=== PATIENT | male | born 1940 | race Caucasian/White ===

== ENCOUNTER → 2018-12-30 | Outpatient (CLI) | payer MEDICARE ==
[2018-12-30 08:11] LABS: HCT 39.9 % (39.0-53.0); HGB 13.2 gm/dL (13.0-17.5); MCH 32.6 pg (25.0-35.0); MCHC 33.1 g/dL (31.0-37.0); MCV 98.5 fL (80.0-100.0); Mean Platelet Volume 7.1; Platelet Count 266 k/uL (150-450); RBC 4.06 m/uL (4.30-5.90); WBC 5.6 k/uL (3.8-10.6)
[2018-12-30 08:26] LABS: INR 0.9 (<1.2); Prothrombin Time 9.9 sec (9.0-12.0)
[2018-12-30 08:30] LABS: Anion Gap 7 mmol/L; Blood Urea Nitrogen 17 mg/dL (9-20); Calcium 10.1 mg/dL (8.4-10.2); Carbon Dioxide 27 mmol/L (22-30); Chloride 107 mmol/L (98-107); Glucose 127 mg/dL (74-99); Sodium 141 mmol/L (137-145)
[2018-12-30 08:51] LABS: Potassium 6.3 mmol/L (3.5-5.1)
== END | disposition home or self-care (01) ==
LOC: LABWHC1 07:51
PROVIDERS: ATTEND Internal Medicine
DX: I48.1 Persistent atrial fibrillation (principal)
CPT/HCPCS: 36415; 80048; 84132; 85027; 85610

== ENCOUNTER → 2019-02-10 | Outpatient (CLI) | payer MEDICARE ==
[2019-02-10 09:39] LABS: HCT 37.9 % (39.0-53.0); HGB 12.8 gm/dL (13.0-17.5); MCH 33.3 pg (25.0-35.0); MCHC 33.9 g/dL (31.0-37.0); MCV 98.2 fL (80.0-100.0); Mean Platelet Volume 6.9; Platelet Count 236 k/uL (150-450); RBC 3.86 m/uL (4.30-5.90); WBC 5.3 k/uL (3.8-10.6)
[2019-02-10 09:56] LABS: Prothrombin Time 10.3 sec (9.0-12.0)
[2019-02-10 16:09] LABS: Anion Gap 7.7 mmol/L (4.00-12.00); Calcium 9.4 mg/dL (8.7-10.3); Carbon Dioxide 25.3 mmol/L (21.6-31.8); Potassium 4.5 mmol/L (3.5-5.5)
== END ==
LOC: LABWHC1 08:57
PROVIDERS: ATTEND Internal Medicine
DX: I48.1 Persistent atrial fibrillation (principal)
CPT/HCPCS: 36415; 80048; 85027; 85610

== ENCOUNTER 2022-08-07 08:55 | Day surgery (SDC) | payer MEDICARE ==
[~2022-08-07 08:55] MED LIST: SODIUM CHLORIDE 0.9% 1,000 ML IV SCH
[2022-08-07 09:35] VITALS: RESP 16; TEMP 97.8
[2022-08-07 09:47] LABS: African American GFR (CKD) >90 (>60 ml/min/1.73 sqM); Anion Gap 7 mmol/L; Blood Urea Nitrogen 23 mg/dL (9-20); Calcium 9.2 mg/dL (8.4-10.2); Carbon Dioxide 26 mmol/L (22-30); Chloride 107 mmol/L (98-107); Glucose 144 mg/dL (74-99); Non-African American GFR(CKD) 84 (>60 ml/min/1.73 sqM); Potassium 4.5 mmol/L (3.5-5.1); Sodium 140 mmol/L (137-145)
[2022-08-07] MEDS ORDERED: PROPOFOL 10 MG/ML 20 ML VIAL IV ONE (10:30)
[2022-08-07] MEDS ORDERED: AMIODARONE 200 MG TAB PO STA (10:48)
--- NOTE | 2022-08-07 11:15 | CE ---
CARDIAC ELECTROPHYSIOLOGY REPORT PROCEDURE PERFORMED: Electrical cardioversion. INDICATION: Persistent atrial fibrillation in a patient with prior ablations. PROCEDURE NOTE: Under the influence of [id number] intravenous anesthetic agent with the attendance of the anesthesiologist, a single shock of 200 joules was delivered with anterior and posterior patches. The patient converted to sinus rhythm, had frequent PACs. Remained hemodynamically stable and neurologically intact. This was a successful electrical cardioversion. Upon discharge, the patient will be on 200 mg of amiodarone daily and 25 mg of metoprolol tartrate daily. I will see him in the office in 1 week. MMODL / IJN: [id number] /
[2022-08-07 12:41] VITALS: BP 144/87
[2022-08-07 12:45] VITALS: PULSE 58
== END 2022-08-07 12:27 | disposition home or self-care (01) ==
LOC: CATHCVL 08:55
PROVIDERS: ATTEND Internal Medicine Interventional Cardiology
DX: I48.11 Longstanding persistent atrial fibrillation (principal); I10 Essential (primary) hypertension; E78.5 Hyperlipidemia, unspecified; F17.210 Nicotine dependence, cigarettes, uncomplicated; Z82.49 Family history of ischemic heart disease and other diseases of the circulatory system; Z86.59 Personal history of other mental and behavioral disorders; Z79.899 Other long term (current) drug therapy
CPT/HCPCS: 92960; 80048; J2704

== ENCOUNTER → 2023-07-01 | Outpatient (CLI) | payer MEDICARE ==
[2023-07-01 16:36] LABS: Chloride 106 mmol/L (96-109); Potassium 5.3 mmol/L (3.5-5.5); Sodium 143 mmol/L (135-145)
[2023-07-01 16:59] LABS: HCT 39.7 % (39.6-50.0); HGB 12.8 d/dL (13.0-17.0); MCH 32.3 pg (27.0-32.0); MCHC 32.2 d/dL (32.0-37.0); MCV 100.3 FL (80.0-97.0); Mean Platelet Volume 9.3 FL (9.5-12.2); NRBC Per 100 WBC 0 X 10*3/uL (0.00-0.01); Platelet Count 294 X 10*3/uL (140-440); RBC 3.96 X 10*6/uL (4.40-5.60); RDW 13.1 % (11.5-14.5); WBC 6.55 X 10*3/uL (4.50-10.00)
== END | disposition home or self-care (01) ==
LOC: LABPAT 10:40
PROVIDERS: ATTEND Internal Medicine Interventional Cardiology
DX: Z01.812 Encounter for preprocedural laboratory examination (principal); I48.0 Paroxysmal atrial fibrillation
CPT/HCPCS: 80051; 82565; 84520; 85027

== ENCOUNTER 2023-07-02 05:55 | Day surgery (SDC) | payer MEDICARE ==
[2023-07-01 12:33] VITALS: BMI 24.3
[2023-07-02] MEDS ORDERED: LACTATED RINGERS 1,000 ML IV ONE (07:04)
[2023-07-02 07:19] VITALS: RESP 16
[2023-07-02] MEDS ORDERED: PROPOFOL 10 MG/ML 20 ML VIAL IV ONE (07:25)
[2023-07-02 07:40] VITALS: TEMP 98
--- NOTE | 2023-07-02 08:08 | CE ---
CARDIAC ELECTROPHYSIOLOGY REPORT PROCEDURES PERFORMED: Electrical cardioversion. INDICATION: Persistent atrial fibrillation. CLINICAL INFORMATION: Mr. Palacios is an 83-year-old gentleman with a history of hypertension, hyperlipidemia, chronic alcohol use, who also has paroxysmal atrial fibrillation for which he underwent 2 previous ablations at [facility]. He came into the office on the , was in atrial fib, complaining of palpitations and some shortness of breath. He was very compliant with Eliquis. He was advised electrical cardioversion and brought in for the procedure. PROCEDURE NOTE: Under the influence of [id number] intravenous anesthetic agent with the attendance of the anesthesiologist, a single shock initially was delivered of 120 joules to the chest wall with anterior and posterior patches. The patient remained in atrial fib and did not convert to sinus rhythm. A second shock was then delivered of 200 joules and he then converted to sinus rhythm, remained hemodynamically stable and neurologically intact. This was a successful cardioversion on the second attempt of 200 joule shock. The patient is stable hemodynamically and neurologically intact. He will be discharged later on today after he is ambulatory. I will see him in the office in about a week. He will take metoprolol tartrate 25 mg b.i.d. instead of 1 daily. MMODL / IJN: [id number] /
[2023-07-02 08:44] VITALS: PULSE 63
[2023-07-02 09:06] VITALS: BP 139/78
== END 2023-07-02 09:11 | disposition home or self-care (01) ==
LOC: OR 05:55
PROVIDERS: ATTEND Internal Medicine Interventional Cardiology
DX: I48.0 Paroxysmal atrial fibrillation (principal); I10 Essential (primary) hypertension; E78.5 Hyperlipidemia, unspecified; F10.10 Alcohol abuse, uncomplicated; Z79.01 Long term (current) use of anticoagulants; Z79.899 Other long term (current) drug therapy; Z87.891 Personal history of nicotine dependence
CPT/HCPCS: 92960; J2704